=== PATIENT | female | born 2000 | race Caucasian/White ===

== ENCOUNTER 2024-02-06 09:35 | Outpatient (CLI) | payer OTHER ==
[~2024-02-06] VITALS: Ht 165.1 cm; Wt 84.5 kg
[~2024-02-06 09:35] MED LIST: IBU600 MG PO; PRENATAL TABLET PO
--- NOTE | 2024-02-06 09:40 | NUR ---
PT AMBULATORY TO UNIT WITH SPOUSE AND TODDLER DAUGHTER. PT ORIENTED TO ROOM AND CHANGED TO HOSPITAL GOWN. THIS RN AT PT BEDSIDE, PT ORIENTED TO PLAN OF CARE. PT REPORTS HAVING SEX LAST NIGHT 02/05/24 AND FELT A "GUSH OF FLUID". PT REPORTS THAT SHE HAS HAD "SOME CLEAR DISCHARGE BUT NOTHING CRAZY." PT DENIES PAIN, DENIES VAGINAL BLEEDING OR SPOTTING, REPORTS POSITIVE MOVEMENT BEFORE AND AFTER THE INCIDENT AND INCLUDES "SHE (BABY) MOVED ALOT AFTER THE GUSH." PT DENIES FEELING ANY CONTRACTIONS. RN DOPPLERS HEART RATE DUE TO PT BEING 22.6 WKS, DOPPLER FOR 1 MIN SHOWS BASELINE OF 155. THIS RN HEARS MOVE MULTIPLE TIMES DURING DOPPLER AND PT REPORTS FEELING INFANT MOVE AT THIS TIME. PT VS STABLE, PT AWAKE AND ALERT X3. THIS RN AMNIOTRACE NEGATIVE RESULTS OF SROM
--- NOTE | 2024-02-06 10:50 | NUR ---
THIS RN EXPLAINS DISCHARGE TO PT AND DOCTOR INSTRUCTIONS TO WEAR PAD AND COME BACK IF PT HAS MORE CONCERNS. PT VERBALLY UNDERSTANDING AND SIGNED DISCHARGE PAPERWORK. PT AMBULATORY OFF UNIT ESCOURTED PER THIS RN
== END 2024-02-06 10:50 | disposition home or self-care (01) ==
LOC: LDRO 09:35
DX: O41.92X0 Disorder of amniotic fluid and membranes, unspecified, second trimester, not applicable or unspecified (principal); Z3A.22 22 weeks gestation of pregnancy